=== PATIENT | female | born 1970 ===

== ENCOUNTER 2021-12-28 08:11 | Day surgery (SDC) | payer OTHER ==
[2021-12-28] MEDS ORDERED: Zoledronic Acid/Mannitol/Water 5 MG/100 ML INFUS.BOT IV ONE (08:15)
[2021-12-28 08:58] VITALS: BP 127/93; TEMP 97.9; O2SAT 99; BMI 37.8
== END 2021-12-28 09:27 | disposition home or self-care (01) ==
LOC: DS 08:11
PROVIDERS: ATTEND Family Medicine
DX: M85.9 Disorder of bone density and structure, unspecified (principal)
CPT/HCPCS: 96365; J3489